=== PATIENT | female | born 1995 | race Caucasian/White ===

== ENCOUNTER 2020-10-20 16:41 | Emergency (ER) | payer OTHER ==
[~2020-10-20] VITALS: Ht 165.1 cm; Wt 100.0 kg
[2020-10-20 16:53] VITALS: BP 161/92
== END 2020-10-20 18:51 | disposition home or self-care (01) ==
LOC: ER 16:41
DX: H10.212 Acute toxic conjunctivitis, left eye (principal)
CPT/HCPCS: 99282